=== PATIENT | male | born 1960 | race American Indian/Alaskan Native ===

== ENCOUNTER 2021-01-30 22:49 | Emergency (ER) | payer OTHER ==
[2021-01-30 22:59] VITALS: BP 147/92
--- NOTE | 2021-01-31 00:04 | Emergency Department Report ---
HPI - General Chief Complaint: Nosebleed Time Seen by Provider: 01/30/21 23:49 - HPI HPI: 60-year-old male with history of hypertension only presents complaining of nosebleed which started approximately 30 minutes prior to arrival. He states that he sneezed and after that started having blood coming out of his left nostril. He has never had a nosebleed before and did not know what to do so he tried leaning his head back to get the bleeding to stop but it did not stop. When he arrived here in the emergency department the epistaxis had resolved but he started having a nosebleed again shortly thereafter. He was shown how to apply pressure to the nasal septum and then the bleeding subsided again. The patient denies experiencing any other symptoms other than the nosebleed including headache, vision change, fever/chills, nasal congestion, sore throat, chest pain, shortness of breath, abdominal pain, nausea/vomiting, or any other complaints. He denies easy bleeding or bruising. He is not on anticoagulants or aspirin. He does admit that today he had not much to eat or drink but had only 4 beers over the course of a few hours. He also admits to feeling anxious since arriving in the emergency department given that he is not used to being in this type of environment. ED Past Medical Hx - Past Medical History Hx Hypertension: Yes (Diagnosed 7 months ago, takes Amlodopine) Hx Heart Attack/AMI: No Hx Renal Disease: No Hx Asthma: No - Surgical History Past Surgical History?: No - Social History Smoking Status: Former Smoker - Medications Home Medications: Home Medications Medication Instructions Recorded Confirmed Last Taken Type Amlodipine Besylate 1 tab PO DAILY 06/17/14 06/22/14 06/22/14 04:30 History Aspirin [Aspirin EC] 1 tab PO DAILY 06/17/14 06/22/14 06/12/14 History Calcium Carbonate/Vitamin D3 1 tab PO DAILY 06/17/14 06/22/14 06/20/14 History [Centrum Pro Nutrients Tablet] Tadalafil [Cialis] 1 tab PO PRN PRN 06/17/14 06/22/14 06/21/14 12:00 History ED Review of Systems ROS: Stated complaint: NOSE BLEED Other details as noted in HPI Constitutional: denies: chills, fever Eyes: denies: eye pain, vision change ENT: epistaxis. denies: throat pain, congestion Respiratory: denies: cough, shortness of breath Cardiovascular: denies: chest pain, palpitations Gastrointestinal: denies: abdominal pain, nausea, vomiting Genitourinary: denies: urgency, dysuria Musculoskeletal: denies: back pain, joint swelling Skin: denies: rash, lesions Neurological: denies: headache, weakness, numbness, paresthesias Psychiatric: anxiety Hematological/Lymphatic: denies: easy bleeding, easy bruising Physical Exam - Physical Exam Vital Signs: Vital Signs 01/30/21 22:58 Temperature 98.0 F Pulse Rate 109 H Respiratory 16 Rate Blood Pressure 147/92 [Right] O2 Sat by Pulse 97 Oximetry Physical Exam: GENERAL: Well developed and well nourished. No acute distress HEAD: Normocephalic. No obvious signs of trauma. ENT: Dry mucous membranes. No septal hematoma. In the right naris there is no bleeding seen. In the left naris there is dried blood and erythema of the nasal septum without active bleeding. Slightly boggy nasal turbinates. EYES: Extraocular movements are intact. Pupils are equal round and reactive to light bilaterally NECK: Supple. Full ROM is intact. Trachea is midline. LUNGS: Nonlabored breathing. Equal chest rise bilaterally. Clear to auscultation bilaterally. CARDIOVASCULAR: Slightly tachycardic but with regular rhythm. No murmurs or rubs. VASCULAR: Cap refill < 2 seconds ABDOMEN: Abdomen is soft and nondistended. There is no significant tenderness, guarding or rebound. SKIN: Skin is warm and dry NEURO: Patient is awake, alert, and oriented. quill fixer II-XII grossly intact. No focal deficits. Normal motor and sensory exam throughout. MUSCULOSKELETAL: No obvious deformities. No significant tenderness. Normal ROM throughout. . ED Course Vital Signs 01/30/21 22:58 Temperature 98.0 F Pulse Rate 109 H Respiratory 16 Rate Blood Pressure 147/92 [Right] O2 Sat by Pulse 97 Oximetry ED Medical Decision Making - Medical Decision Making 6-year-old male with history of hypertension presents with epistaxis after sneezing. The patient reports that he has never had a nosebleed before and that he was very concerned about the bleeding. He does admit to poor fluid intake today other than drinking 4 beers. On physical examination he has dry mucous membranes. Examination of the left naris reveals dried blood and erythema of the nasal septum without active bleeding. There is no septal hematoma. I explained to the patient the anatomy of the nose including the propensity for nosebleeds to come from the region around the nasal septum. I also explained that several factors can contribute and cause nosebleeds including changes in the weather which we have experienced recently as well as dehydration and alcohol consumption. I explained and demonstrated for the patient how to apply pressure appropriately to the nasal septum for 15 to 20 minutes in the event that nosebleed recurs. Patient is noted to be tachycardic but says that he knows this is from being nervous and being dehydrated. He was offered an IV for IV fluids but states he would rather go home and drink fluid. He was encouraged to return to the emergency department should his heart rate remain elevated. He was also encouraged to return should he be unable to control the bleeding from his nose. The patient expressed understanding agreement with the plan of care. Critical care attestation.: If time is entered above; I have spent that time in minutes in the direct care of this critically ill patient, excluding procedure time. ED Disposition Clinical Impression: Dehydration, Epistaxis Disposition: 01 HOME / SELF CARE / HOMELESS Is pt being admited?: No Condition: Stable Instructions: Dehydration, Adult, [id number], Nosebleed, Adult Additional Instructions: Please drink plenty of fluids such as Gatorade. Keep an eye on your heart rate and if it remains elevated you should see a doctor or return to the emergency department. Return to the emergency department should you be unable to control bleeding from her nose or should you develop any other new health concerns
== END 2021-01-31 03:17 | disposition home or self-care (01) ==
LOC: ED 22:49
DX: R04.0 Epistaxis (principal); E86.0 Dehydration; I10 Essential (primary) hypertension; Z87.891 Personal history of nicotine dependence
CPT/HCPCS: 99281